=== PATIENT | male | born 1970 | race Caucasian/White ===

== ENCOUNTER 2017-03-03 22:46 | Emergency (ER) | payer BC ==
[~2017-03-03] VITALS: Ht 172.7 cm; Wt 79.4 kg
[2017-03-03 22:46] VITALS: BP_SYST 137
[2017-03-03] MEDS ORDERED: ASPIRIN 81 MG TAB.CHEW PO ONE (23:30)
[2017-03-03] MEDS ORDERED: NACL 0.9% 1,000 ML IV ONE (23:30)
[2017-03-03 23:47] LABS: BASOPHILS # (AUTO) 0.1 K/uL (0.0-0.2); BASOPHILS % (AUTO) 1.4 % (0.0-2.0); EOSINOPHILS # (AUTO) 0.2 K/uL (0.0-0.4); HEMATOCRIT 42.5 % (36-54); HEMOGLOBIN 14.4 g/dL (14.0-18.0); LYMPHOCYTES # (AUTO) 2.1 K/uL (1.0-5.5); LYMPHOCYTES % (AUTO) 25.5 % (20.5-51.5); MEAN CORPUSCULAR HEMOGLOBIN 30 pg (27-31); MEAN CORPUSCULAR HGB CONC 34 % (32-36); MEAN CORPUSCULAR VOLUME 90 fL (79.0-98.0); MONOCYTES # (AUTO) 0.6 K/uL (0.0-1.0); MONOCYTES % (AUTO) 6.9 % (1.7-9.3); NEUTROPHILS # (AUTO) 5.4 K/uL (1.8-7.7); NEUTROPHILS % (AUTO) 64.2 % (40.0-70.0); PLATELET COUNT (AUTO) 190 K/uL (130-430); RED BLOOD CELL COUNT(AUTO) 4.72 MIL/uL (4.2-6.2); RED CELL DISTRIBUTION WIDTH 11.6 % (9.0-15.0); WHITE BLOOD COUNT (AUTO) 8.4 K/uL (4.8-10.8)
[2017-03-04 00:27] LABS: CALCIUM 9.5 mg/dL (8.4-11.0); CREATININE 0.94 mg/dL (0.55-1.30); POTASSIUM 4.1 mmol/L (3.5-5.1)
[2017-03-04 00:28] LABS: PROTHROMBIN TIME 9.9 SECS (9.5-12.5)
[2017-03-04 00:31] LABS: ALBUMIN 4.1 g/dL (3.4-4.8); TOTAL BILIRUBIN 0.4 mg/dL (0.0-1.0)
[2017-03-04 01:15] VITALS: BP_SYST 128
== END 2017-03-04 01:15 | disposition home or self-care (01) ==
LOC: SED 22:46
DX: F41.1 Generalized anxiety disorder (principal)
CPT/HCPCS: 36415; 71010; 74020; 80053; 84484; 85025; 85379; 85610; 85730; 93005; 96360; 99285; J7030

== ENCOUNTER 2018-10-21 18:19 | Emergency (ER) | payer BC, OTHER ==
[~2018-10-21] VITALS: Ht 172.7 cm; Wt 79.8 kg
[2018-10-21 18:30] VITALS: BP_SYST 133
[2018-10-21] MEDS ORDERED: DIPH-TET-PERTUS Vaccine 0.5 ML VIAL (ADACEL) I.M. ONE (19:45)
[2018-10-21] MEDS ORDERED: HYDROcodone/ACETAMIN 7.5-325 MG TAB PO ONE (20:00)
[2018-10-21] MEDS ORDERED: ONDANSETRON 4 MG ODT TAB PO ONE (20:00)
[2018-10-21] MEDS ORDERED: IBUPROFEN 800 MG TABLET ONE (20:26)
[2018-10-21] MEDS ORDERED: IBUPROFEN 800 MG TABLET PO ONE (20:30)
[2018-10-21 21:14] VITALS: BP_SYST 133
== END 2018-10-21 21:14 | disposition home or self-care (01) ==
LOC: SED 18:19
DX: S60.511A Abrasion of right hand, initial encounter (principal); F41.9 Anxiety disorder, unspecified; X58.XXXA Exposure to other specified factors, initial encounter; Y93.89 Activity, other specified; Y92.89 Other specified places as the place of occurrence of the external cause; Y99.8 Other external cause status
CPT/HCPCS: 90715; 99283; 99284; Q0162